=== PATIENT | male | born 1995 | race Hispanic/Latino ===

== ENCOUNTER 2023-03-25 11:21 | Emergency (ER) | payer BC, MEDICAID ==
[~2023-03-25] VITALS: Ht 175.3 cm; Wt 93.4 kg
[2023-03-25 11:51] VITALS: BP 131/87; PULSE 121; RESP 14; O2SAT 99
[2023-03-25] MEDS ORDERED: AMOX1TAB16 PO (12:21)
[2023-03-25] MEDS ORDERED: IBUP-2077 PO (12:21)
[2023-03-25] MEDS ORDERED: BENZ-39 PO (12:21)
[2023-03-25 12:27] LABS: RAPID GROUP A STREP negative (NEGATIVE)
[2023-03-25 12:30] LABS: SARS-CoV-2, RNA, NAAT NEGATIVE SARS CoV-2 (NEGATIVE)
[2023-03-25 12:37] LABS: INFLUENZA TYPE B Negative For Type B (NEGATIVE)
[2023-03-25 13:36] LABS: INFLUENZA TYPE A Positive For Type A (NEGATIVE)
[2023-03-25] MEDS: AMOX/CLAV 875/125MG TAB PO ONE (14:09)
[2023-03-25] MEDS: IBUPROFEN 800 MG TAB PO ONE (14:09)
== END 2023-03-25 14:17 | disposition home or self-care (01) ==
LOC: EDH 11:21
DX: J02.0 Streptococcal pharyngitis (principal); R50.9 Fever, unspecified; Z20.822 Contact with and (suspected) exposure to COVID-19
CPT/HCPCS: 87635; 87804; 87880